=== PATIENT | male | born 1940 | race Caucasian/White ===

== ENCOUNTER 2020-10-18 00:48 | Emergency (ER) | payer OTHER ==
[~2020-10-18] VITALS: Ht 167.6 cm; Wt 77.6 kg
[~2020-10-18 00:48] MED LIST: ACTIGALL300 MG PO; B12INJ IM; CALCIUM-MAG-ZI1 EACH PO; CIDAFLEX TABLE1 EACH PO; CIPROFLOXACIN500 M1 PO; COLACE 100 MG100 MG; COLACE 100 MG100 MG PO; DEXEDRINE10 MG PO; FLUZONE 2045 MCG/011; LYRICA150 MG PO; NIACIN 100MG T100 M1 PO; NORCO 5-325 TA1 EACH PO; OXYCODONE-APAP1 EAC4 PO; PNEUMOVAX25 MCG/0.5; VITAMIN D1000 UNI1 PO
[2020-10-18] MEDS ORDERED: EPIPEN0.3 MG/0.1 (01:45)
[2020-10-18] MEDS ORDERED: NEURONTIN300 MG (01:46)
[2020-10-18] MEDS ORDERED: ARMODAFINIL150 MG (01:47)
[2020-10-18] MEDS ORDERED: PROPRANOLOL PO (01:47)
[2020-10-18] MEDS ORDERED: VOLTAREN GEL 1100 G1 (01:48)
[2020-10-18] MEDS ORDERED: FLOMAX0.4 MG (01:48)
[2020-10-18] MEDS ORDERED: OMEPRAZOLE40 MG (01:49)
[2020-10-18] MEDS ORDERED: TAPAZOLE10 MG (01:49)
[2020-10-18] MEDS ORDERED: ERYTHROMYCIN E3.5 G3 (01:50)
[2020-10-18] MEDS ORDERED: LUBRICANT EYE1 EACH (01:52)
[2020-10-18] MEDS ORDERED: VITAMIN B-121000 MC2 (01:53)
[2020-10-18 01:56] LABS: ABSOLUTE EOSINOPHILS 0.2 thou/uL (0.0-0.7); ABSOLUTE LYMPHOCYTES 1.5 thou/uL (0.8-5.3); ABSOLUTE MONOCYTES 0.7 thou/uL (0.0-1.2); ABSOLUTE NEUTROPHILS 5.5 thou/uL (1.6-8.1); BASOPHILS 0.3 %; HEMATOCRIT 39.4 % (42.0-52.0); HEMOGLOBIN 13.2 gm/dL (14.0-18.0); LYMPHOCYTES 19.1 %; MCH 30.5 pg (26.0-34.0); MCHC 33.6 g/dL (28.0-37.0); MCV 90.7 fL (80.0-100.0); MONOCYTES 8.4 %; MPV 7.9 fl. (7.2-11.1); NUCLEATED RBCS 0 /100WBC; PLATELET COUNT* 211 thou/uL (150-400); POLYS 69.2 %; RBC 4.34 mil/uL (4.50-6.00); RDW-CV 13.3 % (10.5-14.5)
[2020-10-18 02:06] LABS: CREATININE 1.2 mg/dL (0.6-1.3); POTASSIUM 3.9 mmol/L (3.5-5.1)
[2020-10-18 02:08] LABS: INR 1.1; PROTIME 11.4 Seconds (9.20-11.50)
[2020-10-18 02:11] LABS: ALBUMIN 3.2 g/dL (3.4-5.0); MAGNESIUM 1.9 mg/dL (1.8-2.4); TOTAL BILIRUBIN 0.8 mg/dL (<0.1-1.0); TOTAL PROTEIN 6.8 g/dL (6.4-8.2)
[2020-10-18 02:35] LABS: PO2 79.4 mmHg (75.0-100.0)
[2020-10-18 04:25] VITALS: BP 120/55
--- NOTE | 2020-10-18 10:07 | EKG ---
[place] [address] ELECTROCARDIOGRAM REPORT Name: FCO WOOTEN Room: [facility]#: [id number] Admission: 10/18/20 Attend Phys: Discharge: 10/18/20 Date of : 44 Date of Service: 10/18/20 0056 Report #: [id number] THIS REPORT FOR: //name// [facility] ED Test Date: 2020-10-18 Test Time: 00:56:12 Pat Name: FCO WOOTEN Department: Room: Gender: Supervisor Telephone Information: DOMINICK : 1940 Requested By: Lyla Kimbrough Order Number: [id number] : Dontae Betancur Measurements Intervals [place] Rate: 57 P: 25 OK: 158 QRS: 8 QRSD: 115 T: 43 QT: 450 QTc: 439 Interpretive Statements Sinus rhythm Nonspecific intraventricular conduction delay Compared to ECG 06/28/2006 13:04:11 rate has increased Electronically Signed On 10-18-2020 10:07:07 CDT by Dontae Betancur [email or web address] <ELECTRONICALLY SIGNED> By: Dontae Betancur MD, FACC 10/18/20 1007 0056 0056 Dontae Betancur MD, [facility] /EPI
== END 2020-10-18 04:25 | disposition short-term general hospital (02) ==
LOC: M.ERS 00:48
PROVIDERS: Personal Emergency Response Attendant
DX: I63.9 Cerebral infarction, unspecified (principal); Z20.822 Contact with and (suspected) exposure to COVID-19; I10 Essential (primary) hypertension; G35 Multiple sclerosis; E78.5 Hyperlipidemia, unspecified